=== PATIENT | male | born 2000 | race Caucasian/White ===

== ENCOUNTER 2022-07-17 21:48 | Emergency (ER) | payer OTHER ==
[~2022-07-17] VITALS: Ht 177.8 cm; Wt 81.8 kg
[2022-07-17 21:58] VITALS: TEMP 98.4
[2022-07-17 23:16] VITALS: BP 118/76; PULSE 78
== END 2022-07-17 23:10 | disposition home or self-care (01) ==
LOC: COL.ER 21:48
DX: S61.212A Laceration without foreign body of right middle finger without damage to nail, initial encounter (principal); Z23 Encounter for immunization; W26.8XXA Contact with other sharp object(s), not elsewhere classified, initial encounter